=== PATIENT | male | born 2000 | race Caucasian/White ===

== ENCOUNTER → 2018-10-28 13:44 | Outpatient (POV) | payer OTHER, SELFPAY | PROVIDERS: Visit Provider Dermatology | DX: Z00.00 Encounter for general adult medical examination without abnormal findings (principal) ==

== ENCOUNTER → 2019-03-06 12:34 | Outpatient (CLI) | payer OTHER, SELFPAY ==
--- NOTE | 2019-03-06 12:42 | XR_ITS ---
XR knee LT 3V HISTORY: Left knee pain ITS.REASON: LT KNEE INJURY ORDERING PHYSICIAN: Vamsi Duke MD PATIENT AGE: 18 years COMPARISON: Left knee 04/08/2013 FINDINGS: No fracture or dislocation. No lytic or blastic change. Normal mineralization. No significant arthritic changes evident. No other significant findings IMPRESSION: Negative Knee
[2019-03-06 13:27] LABS: Basophils % 0.3 % (0.1-2.0); Eosinophils % 0.6 % (0.1-12.0); Hematocrit 45.1 % (42.0-52.0); Hemoglobin 14.6 g/dL (14.1-18.0); Lymphocytes # 1.3 K/mm3 (0.7-4.5); Lymphocytes % 21.6 % (10-50); Mean Corpuscular HGB Conc 32.4 g/dL (31.8-35.4); Mean Corpuscular Hemoglobin 29.2 pg (27.0-31.2); Mean Platelet Volume 8.4 fl (7.4-10.4); Monocytes # 0.4 K/mm3 (0.1-1.0); Monocytes % 5.6 % (1.7-9.3); Neutrophils # 4.4 K/mm3 (1.8-7.8); Neutrophils % 71.9 % (37.0-80.0); Platelet Count 189 K/mm3 (142-424); Red Cell Distribution Width 12.8 % (11.5-17.5); White Blood Count 6.2 K/mm3 (4.5-13.0)
[2019-03-06 15:50] LABS: Erythrocyte Sedimentation Rate 10 mm/hr (0-15)
== END ==
PROVIDERS: PCP Internal Medicine Adolescent Medicine; Visit Provider Internal Medicine Adolescent Medicine
DX: S89.92XS Unspecified injury of left lower leg, sequela (principal); Z87.09 Personal history of other diseases of the respiratory system
CPT/HCPCS: 36415; 73562; 85025; 85651

== ENCOUNTER → 2019-04-09 09:45 | Outpatient (CLI) | payer OTHER, SELFPAY ==
[2019-04-09 10:59] VITALS: PULSE 82; PULSE 83
== END ==
PROVIDERS: PCP Internal Medicine Adolescent Medicine; Visit Provider Internal Medicine Adolescent Medicine
DX: Z87.09 Personal history of other diseases of the respiratory system (principal)
CPT/HCPCS: 94060; 94640; 94726; 94729